=== PATIENT | female | born 1970 | race Caucasian/White ===

== ENCOUNTER 2017-10-07 16:24 | Inpatient (IN) | payer MEDICAID ==
[~2017-10-07] VITALS: Ht 157.5 cm; Wt 92.5 kg
--- NOTE | 2017-10-07 16:30 | NUR ---
PT AMBULATED TO ER BED 04
[2017-10-07 16:36] VITALS: BP 135/76
[2017-10-07] MEDS ORDERED: ONDANSETRON 4 MG/2 ML VIAL IVP ONE (16:40)
[2017-10-07] MEDS ORDERED: NACL 0.9% 1,000 ML IV ONE (16:40)
--- NOTE | 2017-10-07 17:10 | NUR ---
PT. UNABLE TO PROVIDE URINE AT THIS TIME. ER MD NOTIFIED. WILL CONTINUE TO MONITOR.
[2017-10-07 17:23] LABS: ANION GAP 14.6 (8-16); CARBON DIOXIDE 22.9 mmol/L (21-32); CREATININE 0.6 mg/dL (0.6-1.3); POTASSIUM 3.5 mmol/L (3.5-5.1)
[2017-10-07 17:29] LABS: ALBUMIN 3.4 g/dL (3.4-5.0)
[2017-10-07 17:46] LABS: EOSINOPHILS # (AUTO) 0.1 K/uL (0-0.4); EOSINOPHILS % (AUTO) 2.1 % (0.0-4.0); LYMPHOCYTES % (AUTO) 39.5 % (20.5-51.1); MEAN CORPUSCULAR HEMOGLOBIN 18 pg (27-31); MEAN CORPUSCULAR HGB CONC 30 g/dL (33-37); MEAN CORPUSCULAR VOLUME 60.5 fL (80-94); MONOCYTES # (AUTO) 0.2 K/uL (0.8-1.0); MONOCYTES % (AUTO) 6.5 % (1.7-9.3); NEUTROPHILS # (AUTO) 1.3 K/uL (1.8-7.7); NEUTROPHILS % (AUTO) 51.9 % (42.2-75.2); RED BLOOD CELL COUNT(AUTO) 1.81 MIL/uL (4.20-5.40); RED CELL DISTRIBUTION WIDTH 34.7 % (11.6-13.7); WHITE BLOOD COUNT (AUTO) 2.5 K/uL (4.8-10.8)
[2017-10-07 17:49] LABS: HEMOGLOBIN 3.2 g/dL (12.0-16.0)
[2017-10-07 17:50] LABS: HEMATOCRIT 10.9 % (36-48); PLATELET COUNT (AUTO) 10 K/uL (140-450)
--- NOTE | 2017-10-07 18:10 | NUR ---
PT. RESTING COMFORTABLY IN BED, RR EVEN AND UNLABORED. DAUGHTER AT BEDSIDE, WILL CONTINUETO MONITOR.
[2017-10-07] MEDS ORDERED: ACETAMINOPHEN 325 MG TAB PO PRN (18:20)
[2017-10-07] MEDS ORDERED: ZOLPIDEM 5 MG TAB PO PRN (18:20)
[2017-10-07] MEDS ORDERED: HYDROcodone/APAP 7.5/325 MG 1 TAB PO PRN (18:20)
[2017-10-07] MEDS ORDERED: ONDANSETRON 4 MG/2 ML VIAL IVP PRN (18:20)
[2017-10-07 18:44] LABS: BILIRUBIN,URINE NEGATIVE (NEGATIVE); BLOOD, URINE NEGATIVE (NEGATIVE); LEUKOCYTE ESTERASE ,URINE NEGATIVE (NEGATIVE); NITRITE, URINE NEGATIVE (NEGATIVE); UGLUCOSE NEGATIVE (NEGATIVE)
[2017-10-07 18:46] LABS: APPEARANCE,URINE CLEAR (CLEAR); COLOR,URINE YELLOW (YELLOW)
--- NOTE | 2017-10-07 18:55 | NUR ---
Patient will be admitted to care of DR. BENTLEY . Admited to TELE . Will go to room 107B. Belongings list completed. Report to DAWNA DUNCAN .
--- NOTE | 2017-10-07 19:00 | NUR ---
PT ARRIVED ON UNIT VIA GURNEY WITH ER NURSE. PT IN STABLE CONDITION. PT IS ACCOMPANIED BY HER DAUGHTERS. PT IS A/O X4. PT IS ON RA. SKIN IS INTACT. IV ACCESS IN R AC 18G AND L AC 22G. IVS ARE INTACT AND PATENT. PT HAS NO C/O PAIN AT THIS TIME. BED LOCKED, LOWEST POSITION WITH SIDE RAILS UP X2. BOARD UPDATED. PT ORIENTATED TO ROOM AND CALL LIGHT USE. WILL CONTINUE TO MONITOR PT.
[2017-10-07 19:01] LABS: PROTHROMBIN TIME 10.8 secs (10.8-13.4)
[2017-10-07 19:01] LABS: BARBITURATE, URINE NEG. ng/ml (NEG <=200); BENZODIAZEPINE, URINE NEG. ng/mL (NEG <=200); CANNABINOID, URINE NEG. ng/mL (NEG <=50); COCAINE, URINE NEG. ng/mL (NEG <=300); OPIATE, URINE NEG. ng/mL (NEG <=2000); PHENCYCLIDINE SCREEN,URINE NEG. ng/mL (NEG <=25)
[2017-10-07 19:11] LABS: FREE T4 (FREE THYROXINE) 0.89 ng/dL (0.76-1.46); PHOSPHORUS 3.4 mg/dL (2.5-4.9); THYROID STIMULATING HORMONE 1.21 uIU/mL (0.34-3.74)
[2017-10-07 20:00] VITALS: BP 114/67
--- NOTE | 2017-10-07 20:54 | NUR ---
MD AT BEDSIDE SPEAKING WITH PT ABOUT BLOOD TRANSFUSION. PT EXPRESSING UNDERSTANDING OF THE NEED FOR TRANSFUSION. CONSENT SIGNED.
--- NOTE | 2017-10-07 22:00 | NUR ---
1ST UNIT OF PRBC STARTED. PT TOLERATING WELL. VS ARE STABLE. WILL CONTINUE TO MONITOR PT.
[2017-10-07] MEDS: DOCUSATE SODIUM 100 MG GELCAP PO SCH (23:05)
[2017-10-07] MEDS: NACL 0.9% 500 ML IV SCH (23:05)
[2017-10-08] VITALS (7 sets, daily range): BP systolic 109–134; BP diastolic 66–84
--- NOTE | 2017-10-08 | NUR ---
1ST UNIT OF PRBC COMPLETED. PT TOLERATED WELL. NO S/SX OF TRANSFUSION REACTION. WILL CONTINUE TO MONITOR PT.
--- NOTE | 2017-10-08 00:40 | NUR ---
2ND UNIT OF PRBC STARTED. VS ARE STABLE. PT TOLERATING WELL. WILL CONTINUE TO MONITOR.
--- NOTE | 2017-10-08 02:45 | NUR ---
2ND UNIT OF PRBC COMPLETED. VS ARE STABLE. NO S/SX OF TRANSFUSION REACTION. WILL CONTINUE TO MONITOR PT.
--- NOTE | 2017-10-08 04:15 | NUR ---
PT ASLEEP IN BED. NO S/SX OF DISTRESS. WILL CONTINUE TO MONITOR.
--- NOTE | 2017-10-08 05:50 | NUR ---
PIPE FITTER MAINTENANCE HERE TO TAKE PT TO CT SCAN.
--- NOTE | 2017-10-08 06:05 | NUR ---
PT IS BACK FROM CT. PT IN STABLE CONDITION.
--- NOTE | 2017-10-08 06:25 | NUR ---
3RD UNIT OF PRBC STARTED. PT TOLERATING WELL. WILL CONTINUE TO MONITOR.
[2017-10-08] MEDS: DEXT 5% / NACL 0.9% 500 ML IV SCH ×4 (07:24→20:00)
--- NOTE | 2017-10-08 07:30 | NUR ---
ENDORSED PT TO DAY SHIFT NURSE FOR CONTINUITY OF CARE. PT IN STABLE CONDITION.
--- NOTE | 2017-10-08 07:31 | NUR ---
RECEIVED REPORT FROM WATER HYDRANT INSTALLER NURSE. PATIENT LYING DOWN IN BED COMFORTABLY. NO DISTRESS NOTED. DENIES ANY PAIN. RESPIRATIONS EVEN, UNLABORED, ON ROOM AIR. 3RD UNIT OF BLOOD CURRENTLY INFUSING. AAOX4, CALM, COOPERATIVE, SKIN COLOR APPROPRIATE TO ETHNICITY, WARM TO TOUCH. SKIN IS INTACT. LUNGS CTA ON ALL LOBES. IV SITES INTACT, PATENT AND INFUSING IVF AND BLOOD PER MD ORDERS. ABDOMEN SOFT, NON-DISTENDED. REVIEWED PLAN OF CARE WITH PATIENT. PATIENT VERBALIZED UNDERSTANDING. SAFETY MEASURES IN PLACE, CALL LIGHT WITHIN REACH. WILL CONTINUE TO MONITOR.
[2017-10-08 07:37] LABS: BASOPHILS % (AUTO) 0.3 % (0.0-2.0); EOSINOPHILS # (AUTO) 0.1 K/uL (0-0.4); EOSINOPHILS % (AUTO) 2.2 % (0.0-4.0); LYMPHOCYTES # (AUTO) 1.3 K/uL (2.5-16.5); LYMPHOCYTES % (AUTO) 46.3 % (20.5-51.1); MEAN CORPUSCULAR HEMOGLOBIN 22 pg (27-31); MEAN CORPUSCULAR HGB CONC 33 g/dL (33-37); MEAN CORPUSCULAR VOLUME 67.8 fL (80-94); MONOCYTES # (AUTO) 0.1 K/uL (0.8-1.0); MONOCYTES % (AUTO) 5.3 % (1.7-9.3); NEUTROPHILS # (AUTO) 1.3 K/uL (1.8-7.7); NEUTROPHILS % (AUTO) 45.9 % (42.2-75.2); RED CELL DISTRIBUTION WIDTH 34.9 % (11.6-13.7); WHITE BLOOD COUNT (AUTO) 2.7 K/uL (4.8-10.8)
[2017-10-08 08:22] LABS: ANION GAP 11.8 (8-16); CARBON DIOXIDE 24.4 mmol/L (21-32); CREATININE 0.5 mg/dL (0.6-1.3); POTASSIUM 4.2 mmol/L (3.5-5.1)
[2017-10-08 08:35] LABS: HEMOGLOBIN 5.5 g/dL (12.0-16.0)
[2017-10-08] MEDS: DOCUSATE SODIUM 100 MG GELCAP PO SCH ×2 (08:35→20:09)
[2017-10-08 08:36] LABS: HEMATOCRIT 16.9 % (36-48); PLATELET COUNT (AUTO) 10 K/uL (140-450)
--- NOTE | 2017-10-08 08:40 | NUR ---
3RD UNIT OF PRBC INFUSION COMPLETED WITHOUT ANY REACTIONS NOTED. WILL CONTINUE TO MONITOR.
[2017-10-08 08:41] LABS: CHOL/HDL RATIO 4.9 (1-4.5); MAGNESIUM 2.3 mg/dL (1.8-2.4); PHOSPHORUS 3.5 mg/dL (2.5-4.9)
--- NOTE | 2017-10-08 09:35 | NUR ---
PATIENT LYING IN BED WATCHING TV. NO DISTRESS NOTED. ANOTHER 1 UNIT OF PRBC STARTED AT THIS TIME, THIS WILL BE THE 4TH UNIT OF PRBC. SAFETY MEASURES IN PLACE, CALL LIGHT WITHIN REACH. WILL CONTINUE TO MONITOR.
--- NOTE | 2017-10-08 11:26 | NUR ---
PATIENT HAS BEEN SCREENED AND CATEGORIZED MODERATE NUTRITION RISK. PATIENT WILL BE SEEN WITHIN 3-5 DAYS OF ADMISSION. 10/10/17 -10/12/[address]
--- NOTE | 2017-10-08 11:35 | NUR ---
1042 CALLED [facility] AND SPOKE WITH IVELISSE IN ADMITTING [phone] BECK HAD ALREADY CALLED TO REQUEST A BED. PROVIDED IVELISSE WITH INITIAL PATIENT INFORMATION AND FAXED OVER CLINICAL INFORMATION TO [phone]. IVELISSE WILL FOLLOW UP AND CALL BACK WITH STATUS OF TRANSFER.
--- NOTE | 2017-10-08 12:50 | NUR ---
4TH UNIT OF PRBC INFUSION COMPLETE. NO REACTIONS NOTED. PATIENT DENIES ANY UNUSUAL FEELINGS. V/S STABLE AND ARE AROUND AT BASELINE. WILL CONTINUE TO MONITOR.
--- NOTE | 2017-10-08 14:15 | NUR ---
PATIENT AMBULATED TO BATHROOM AND BACK TO BED WITH STEADY GAIT. WILL CONTINUE TO MONITOR.
--- NOTE | 2017-10-08 15:55 | NUR ---
1 UNIT OF PLATELET PHERESIS INFUSION STARTED. WILL CONTINUE TO MONITOR PER PROTOCOL.
--- NOTE | 2017-10-08 17:57 | NUR ---
Patternmaker Metal Bench Note: Charge Nurse Judy made aware [facility] will call nurses' station number once there's a bed available.
[2017-10-08] MEDS: NACL 0.9% 500 ML IV SCH (18:17)
--- NOTE | 2017-10-08 18:50 | NUR ---
1 UNIT OF PLATELET PHRESIS INFUSION COMPLETED AT THIS TIME. NO REACTION NOTED. WILL CONTINUE TO MONITOR.
--- NOTE | 2017-10-08 19:25 | NUR ---
RECEIVED REPORT AT PT BEDSIDE FROM DAY SHIFT NURSE. PT IN STABLE CONDITION. PT THREE DAUGHTERS ARE AT BEDSIDE. PT IS A/O X4. PT IS ON RA. SKIN IS INTACT. IV ACCESS IN R AC 18G AND L AC 22G. ORDERED IVF RUNNING IN R AC IV. BOTH IVS ARE PATENT AND INTACT. PT HAS NO C/O PAIN AT THIS TIME. BED IS LOCKED, LOWEST POSITION, WITH SIDE RAILS UP X2. CALL LIGHT IS WITHIN REACH. BOARD UPDATED. WILL CONTINUE TO MONITOR.
--- NOTE | 2017-10-08 19:25 | NUR ---
GAVE REPORT TO FLASH WELDER NURSE FOR CONTINUITY OF CARE. PATIENT IN STABLE CONDITION.
--- NOTE | 2017-10-08 20:09 | NUR ---
ORDERED MEDICATION ADMINISTERED. PT TOLERATED WELL. ALL NEEDS ARE MET AT THIS TIME. WILL CONTINUE TO MONITOR.
[2017-10-08 22:14] LABS: EOSINOPHILS # (AUTO) 0.1 K/uL (0-0.4); EOSINOPHILS % (AUTO) 2.8 % (0.0-4.0); MEAN CORPUSCULAR HEMOGLOBIN 23 pg (27-31); MEAN CORPUSCULAR HGB CONC 33 g/dL (33-37); MEAN CORPUSCULAR VOLUME 70.9 fL (80-94); MONOCYTES # (AUTO) 0.2 K/uL (0.8-1.0); MONOCYTES % (AUTO) 6.5 % (1.7-9.3); NEUTROPHILS # (AUTO) 1.2 K/uL (1.8-7.7); NEUTROPHILS % (AUTO) 50.7 % (42.2-75.2); RED BLOOD CELL COUNT(AUTO) 2.95 MIL/uL (4.20-5.40); RED CELL DISTRIBUTION WIDTH 30.7 % (11.6-13.7); WHITE BLOOD COUNT (AUTO) 2.4 K/uL (4.8-10.8)
[2017-10-08 22:25] LABS: HEMATOCRIT 20.9 % (36-48)
[2017-10-08 22:26] LABS: HEMOGLOBIN 6.8 g/dL (12.0-16.0); PLATELET COUNT (AUTO) 13 K/uL (140-450)
--- NOTE | 2017-10-08 22:35 | NUR ---
LAB CALLED TO REPORT CRITICAL LAB VALUES, HGB 6.8, HCT 20.9, PLT 13. MD MADE AWARE. ORDERS TO ADMINISTER PRBC AND PLATELETS RECEIVED.
[2017-10-08] MEDS ORDERED: ACETAMINOPHEN 325 MG TAB PO SCH (23:00)
[2017-10-09] VITALS: BP 112/64
--- NOTE | 2017-10-09 00:05 | NUR ---
PT HAD BLOODY BM. MADE AWARE.
--- NOTE | 2017-10-09 00:10 | NUR ---
PT VS WITHIN NORMAL LIMITS. NO C/O PAIN. WILL CONTINUE TO MONITOR PT.
[2017-10-09] MEDS: DEXT 5% / NACL 0.9% 500 ML IV SCH ×2 (02:49→08:49)
--- NOTE | 2017-10-09 02:49 | NUR ---
NEW BAG OF IVF STARTED. PT IS ASLEEP. NO S/SX OF DISTRESS. WILL CONTINUE TO MONITOR.
[2017-10-09 04:00] VITALS: BP 114/72
[2017-10-09] MEDS ORDERED: ACETAMINOPHEN 325 MG TAB ONE (04:25)
--- NOTE | 2017-10-09 04:28 | NUR ---
2300 BENADRYL AND TYLENOL NON ADMINISTERED D/T BLOOD NOT READY. BENADRYL AND TYLENOL ADMINISTERED 0428 PRE TRANSFUSION.
--- NOTE | 2017-10-09 04:30 | NUR ---
BLOOD INFUSION STARTED. PT VS ARE STABLE. WILL CONTINUE TO MONITOR.
--- NOTE | 2017-10-09 05:57 | NUR ---
BLOOD STILL INFUSING. VS ARE WITHIN NORMAL LIMITS. PT IS STABLE. NO S/SX OF REACTION. WILL CONTINUE TO MONITOR.
--- NOTE | 2017-10-09 07:10 | NUR ---
ENDORSED PT TO DAY SHIFT NURSE FOR CONTINUITY OF CARE. PT IN STABLE CONDITION.
--- NOTE | 2017-10-09 07:11 | NUR ---
RECEIVED REPORT FROM SOLAR PHOTOVOLTAIC INSTALLER NURSE. PATIENT LYING DOWN IN BED TALKING ON HER PHONE. NO DISTRESS NOTED. DENIES ANY PAIN. RESPIRATIONS EVEN, UNLABORED, ON ROOM AIR. AAOX4, CALM, COOPERATIVE, SKIN COLOR APPROPRIATE TO ETHNICITY, WARM TO TOUCH. SKIN IS INTACT. IV SITE INTACT, PATENT, AND INFUSING IVF PER MD ORDERS. ABDOMEN SOFT, NON-DISTENDED. LUNGS CTA ON ALL LOBES. REVIEWED PLAN OF CARE WITH PATIENT. PATIENT VERBALIZED UNDERSTANDING. SAFETY MEASURES IN PLACE, CALL LIGHT WITHIN REACH. WILL CONTINUE TO MONITOR.
[2017-10-09 08:00] VITALS: BP 118/74
[2017-10-09] MEDS: DOCUSATE SODIUM 100 MG GELCAP PO SCH ×2 (08:43→20:32)
--- NOTE | 2017-10-09 08:44 | NUR ---
PATIENT LYING DOWN IN BED ON HER PHONE. NO DISTRESS NOTED. DENIES ANY PAIN. SCHEDULED MEDICATIONS DUE GIVEN. SAFETY MEASURES IN PLACE, CALL LIGHT WITHIN REACH. WILL CONTINUE TO MONITOR.
--- NOTE | 2017-10-09 10:24 | NUR ---
CALLED [facility] AND SPOKE WITH EDUARDA BRAKE LINER. SHE SAID SHE WOULD CALL ME BACK. I CALLED IVELISSE IN ADMITTING, [phone]. HE SAID HE WOULD CALL ME BACK.
[2017-10-09 11:32] LABS: BASOPHILS % (AUTO) 0.2 % (0.0-2.0); EOSINOPHILS # (AUTO) 0.1 K/uL (0-0.4); EOSINOPHILS % (AUTO) 3.6 % (0.0-4.0); LYMPHOCYTES # (AUTO) 0.7 K/uL (2.5-16.5); LYMPHOCYTES % (AUTO) 35.8 % (20.5-51.1); MEAN CORPUSCULAR HEMOGLOBIN 24 pg (27-31); MEAN CORPUSCULAR HGB CONC 33 g/dL (33-37); MEAN CORPUSCULAR VOLUME 73.1 fL (80-94); MONOCYTES # (AUTO) 0.1 K/uL (0.8-1.0); MONOCYTES % (AUTO) 4.9 % (1.7-9.3); NEUTROPHILS # (AUTO) 1.1 K/uL (1.8-7.7); NEUTROPHILS % (AUTO) 55.5 % (42.2-75.2); RED CELL DISTRIBUTION WIDTH 29.8 % (11.6-13.7); WHITE BLOOD COUNT (AUTO) 2.1 K/uL (4.8-10.8)
[2017-10-09 11:42] LABS: HEMATOCRIT 24.2 % (36-48); PLATELET COUNT (AUTO) 19 K/uL (140-450)
[2017-10-09 11:50] LABS: ANION GAP 9.4 (8-16); CARBON DIOXIDE 25.2 mmol/L (21-32); CREATININE 0.6 mg/dL (0.6-1.3); POTASSIUM 3.6 mmol/L (3.5-5.1)
[2017-10-09 11:55] LABS: MAGNESIUM 2.4 mg/dL (1.8-2.4); PHOSPHORUS 4.1 mg/dL (2.5-4.9)
[2017-10-09 12:00] VITALS: BP 134/81
[2017-10-09] MEDS: DEXT 5% /NACL 0.9% 1,000 ML IV SCH (12:26)
--- NOTE | 2017-10-09 12:55 | NUR ---
DR. HAWKINS AT BEDSIDE REVIEWING PLAN OF CARE WITH PATIENT. WILL CONTINUE TO MONITOR.
[2017-10-09 16:00] VITALS: BP 123/81
--- NOTE | 2017-10-09 16:32 | NUR ---
CALLED [facility] AND SPOKE WITH EDUARDA, NO BEDS YET.
--- NOTE | 2017-10-09 17:00 | NUR ---
PATIENT LYING IN BED TALKING WITH FAMILY MEMBERS AT BEDSIDE. 1 UNIT OF PLATELET APHERESIS CURRENTLY INFUSING. NO REACTIONS NOTED. WILL CONTINUE TO MONITOR.
--- NOTE | 2017-10-09 18:30 | NUR ---
PATIENT LYING IN BED TALKING WITH FAMILY MEMBERS AT BEDSIDE. NO DISTRESS NOTED. CONDITION UNCHANGED. WILL CONTINUE TO MONITOR.
--- NOTE | 2017-10-09 19:25 | NUR ---
GAVE REPORT TO SENIOR PUBLICATIONS SPECIALIST NURSE FOR CONTINUITY OF CARE. PATIENT IN STABLE CONDITION.
--- NOTE | 2017-10-09 19:45 | NUR ---
ASSISTED PT WITH FIXING BED AND CHANGING GOWN. PT IS BACK IN BED. NO C/O OF PAIN. WILL CONTINUE TO MONITOR.
[2017-10-09 20:00] VITALS: BP 130/70
--- NOTE | 2017-10-09 20:32 | NUR ---
ADMINISTERED ORDERED MEDICATION. PT TOLERATED WELL. ALL NEEDS ARE MET AT THIS TIME. WILL CONTINUE TO MONITOR PT.
--- NOTE | 2017-10-09 22:36 | NUR ---
PT ASLEEP IN BED. NO S/SX OF DISTRESS. WILL CONTINUE TO MONITOR PT.
[2017-10-10] VITALS: BP 117/76
--- NOTE | 2017-10-10 00:10 | NUR ---
PT VS WITHIN NORMAL LIMITS. PT HAS NO C/O PAIN. ALL NEEDS ARE MET AT THIS TIME. WILL CONTINUE TO MONITOR.
[2017-10-10] MEDS: DEXT 5% /NACL 0.9% 1,000 ML IV SCH ×2 (00:29→08:48)
--- NOTE | 2017-10-10 02:13 | NUR ---
PT ASLEEP IN BED. NO S/SX OF DISTRESS. WILL CONTINUE TO MONITOR PT.
[2017-10-10 04:00] VITALS: BP 121/74
--- NOTE | 2017-10-10 04:12 | NUR ---
PT VS WITHIN NORMAL LIMITS. NO SIGNS OF DISTRESS. WILL CONTINUE TO MONITOR PT.
[2017-10-10 06:06] LABS: BASOPHILS % (AUTO) 0.1 % (0.0-2.0); EOSINOPHILS # (AUTO) 0.1 K/uL (0-0.4); EOSINOPHILS % (AUTO) 2.6 % (0.0-4.0); HEMATOCRIT 23.5 % (36-48); HEMOGLOBIN 7.7 g/dL (12.0-16.0); LYMPHOCYTES # (AUTO) 1.1 K/uL (2.5-16.5); LYMPHOCYTES % (AUTO) 39.8 % (20.5-51.1); MEAN CORPUSCULAR HEMOGLOBIN 24 pg (27-31); MEAN CORPUSCULAR HGB CONC 33 g/dL (33-37); MEAN CORPUSCULAR VOLUME 73.6 fL (80-94); MONOCYTES # (AUTO) 0.2 K/uL (0.8-1.0); MONOCYTES % (AUTO) 6.6 % (1.7-9.3); NEUTROPHILS # (AUTO) 1.4 K/uL (1.8-7.7); NEUTROPHILS % (AUTO) 50.9 % (42.2-75.2); PLATELET COUNT (AUTO) 34 K/uL (140-450); WHITE BLOOD COUNT (AUTO) 2.8 K/uL (4.8-10.8)
[2017-10-10 06:44] LABS: ANION GAP 11.8 (8-16); CARBON DIOXIDE 24.9 mmol/L (21-32); CREATININE 0.7 mg/dL (0.6-1.3); POTASSIUM 3.7 mmol/L (3.5-5.1)
[2017-10-10 06:46] LABS: MAGNESIUM 2.2 mg/dL (1.8-2.4); PHOSPHORUS 4.6 mg/dL (2.5-4.9)
--- NOTE | 2017-10-10 07:10 | NUR ---
ENDORSED PT TO DAY SHIFT NURSE. PT IN STABLE CONDITION.
--- NOTE | 2017-10-10 07:11 | NUR ---
RECEIVED REPORT FROM THE ENGINE MANAGER NURSE AT BEDSIDE FOR CONTINUITY OF CARE. PT IS AWAKE AND ORIENTED. INTRODUCED MYSELF AND UPDATED THE BOARD. IV ON L AC 22G INFUSING D5NS AT 75ML, AND R AC 18G SL. PT IS AWAITING TO BE TRANSFERRED TO [facility] FOR EGD, COLONOSCOPY, BUT FIRST NEED CLEARANCE FROM STORE HOST. WILL AWAIT ORDERS. WILL BE BACK TO REASSESS PT.
--- NOTE | 2017-10-10 07:30 | NUR ---
V/S WITHIN NORMAL RANGE. DENIES PAIN. LAST BM 10/09, BLOODY STOOLS, BRIGHT RED BLOOD. NO BM THIS MORNING. DRS CAME AND ROUNDED. JUST WAITING FOR A BED AT [facility]. WILL CONTINUE TO MONITOR PT.
[2017-10-10 08:00] VITALS: BP 133/83
[2017-10-10] MEDS: DOCUSATE SODIUM 100 MG GELCAP PO SCH (08:48)
--- NOTE | 2017-10-10 08:53 | NUR ---
ADMINISTERED MORNING MED AND HUNG A NEW IVF. PT TOLERATED WELL. IV ON THE L AC HAS INFILTRATED. REMOVED IV, CANNULA INTACT. NOW FLUID INFUSING IN THE R AC. INFUSING WELL. WILL CONTINUE TO MONITOR PT.
--- NOTE | 2017-10-10 10:07 | NUR ---
CALLED IVELISSE AT [facility]. HE SAID THEY ARE WORKING ON A BED AND WILL CALL ME. IVELISSE FROM [facility], [phone], AND SAID THE PATIENT WILL GO TO ROOM [address] DAVID. ON TELEMETRY. CALL REPORT TO [phone] KIRKPATRICK AND INFORMED HIM I CALLED ADDISON TONEYCOST ACCOUNTING CLERK NURSE AND INFORMED HER.
--- NOTE | 2017-10-10 10:55 | NUR ---
TRANSFER ORDERS IN. CALLED [facility] AND TRIED TO GIVE REPORT. THEY ONLY HAVE MS BEDS AND NOT A TELE ONE. THEY WILL CALL THEIR FINAL INSPECTOR TRUCK TRAILER AND WILL CALL ME BACK. CALLED FAMILY AND LEFT MESSAGE TO NOTIFY THEM OF HER TRANSFER.
--- NOTE | 2017-10-10 11:04 | NUR ---
SPOKE TO DAWNA CONNOR AT [facility] AND GAVE REPORT [phone]. PT WILL BE GOING TO ROOM 446. PT WILL BE FOLLOWED BY DR. BECK. CD ORDERED. PT WILL GO WITH THE [facility]G . PT ALREADY DRESSED AND READY TO GO. AWAITING [facility] TO ARRIVE AT 1130.
--- NOTE | 2017-10-10 11:55 | NUR ---
[facility] HERE TO [facility] MAN PT. PT HAS ALL HER BELONGINGS. PT IS IN STABLE CONDITION.
== END 2017-10-10 11:55 | disposition short-term general hospital (02) | DRG 691 ==
LOC: MED 16:24 → MTU 18:17
PROVIDERS: ADMIT General Practice; ATTEND General Practice
PROC: 30233N1 Transfusion of Nonautologous Red Blood Cells into Peripheral Vein, Percutaneous Approach (ICD-10-PCS; principal; 2017-10-07)
PROC: 30233R1 Transfusion of Nonautologous Platelets into Peripheral Vein, Percutaneous Approach (ICD-10-PCS; 2017-10-09)
DX: C95.90 Leukemia, unspecified not having achieved remission (principal); D61.818 Other pancytopenia; E87.8 Other disorders of electrolyte and fluid balance, not elsewhere classified; E87.1 Hypo-osmolality and hyponatremia; K92.2 Gastrointestinal hemorrhage, unspecified; E83.51 Hypocalcemia; E66.9 Obesity, unspecified; R74.0 Nonspecific elevation of levels of transaminase and lactic acid dehydrogenase [LDH]; A63.0 Anogenital (venereal) warts; R16.1 Splenomegaly, not elsewhere classified; K64.9 Unspecified hemorrhoids; R23.3 Spontaneous ecchymoses; Z68.37 Body mass index [BMI] 37.0-37.9, adult; X50.0XXA Overexertion from strenuous movement or load, initial encounter; Y93.89 Activity, other specified; Y92.89 Other specified places as the place of occurrence of the external cause; Y99.8 Other external cause status; Z88.8 Allergy status to other drugs, medicaments and biological substances
CPT/HCPCS: 36415; 71045; 80048; 80053; 80305; 81003; 81025; 82150; 82607; 82728; 82746; 83036; 83540; 83690; 83735; 83880; 84100; 84439; 84443; 84484; 85025; 85045; 85379; 85384; 85610; 85730; 86886; 86900; 86901; 86920; 87040; 87081; 93005; 96360; 99285; J7030; J7042; P9016; P9035; Q0163